=== PATIENT | female | born 1995 | race African-American/Black ===

== ENCOUNTER 2018-04-15 17:34 | Emergency (ER) | payer SELFPAY ==
[~2018-04-15] VITALS: Ht 170.2 cm; Wt 86.4 kg
[2018-04-15 17:43] VITALS: BP 146/86; TEMP 98.8
[2018-04-15] MEDS ORDERED: AMOXICILLIN 8751 TAB PO (19:39)
[2018-04-15 19:55] VITALS: PULSE 92
== END 2018-04-15 19:55 | disposition home or self-care (01) ==
LOC: COL.ER 17:34
DX: H92.02 Otalgia, left ear (principal); J45.909 Unspecified asthma, uncomplicated